=== PATIENT | female | born 2000 | race Hispanic/Latino ===

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

== ENCOUNTER 2023-03-19 04:27 | Emergency (ER) | payer OTHER, SELFPAY ==
[2023-03-19 04:31] VITALS: BP 124/77; PULSE 127; RESP 14; TEMP 37.6; O2SAT 98
[2023-03-19] MEDS: ACETAMINOPHEN 500 MG TABLET 1000 MG PO (05:42)
[2023-03-19] MEDS: IBUPROFEN 400 MG TABLET 800 MG PO (05:43)
[2023-03-19] MEDS: ONDANSETRON INJ 4 MG/2 ML VIAL IV PUSH (05:43)
[2023-03-19] MEDS: SODIUM CHLORIDE 0.9% IV 2,000 ML 999 ML IV CONT (05:43)
[2023-03-19] MEDS: AMOXICILLIN 500 MG CAPSULE PO (05:43)
--- NOTE | 2023-03-19 05:51 | ED.GENADULT ---
HPI - General Adult General Chief complaint: Nausea/Vomiting/Diarrhea Stated complaint: nausea and weakness Time Seen by Provider: 03/19/23 05:14 History of Present Illness HPI narrative: This is a 22-year-old female presenting ED with chief complaint of sore throat. Associated symptoms include fevers, body aches, and generalized weakness. denies difficulty breathing or abdominal pain. No nausea vomiting diarrhea. This started yesterday when she woke up but has gotten significantly worse tonight. Related Data Allergies Allergy/AdvReac Type Severity Reaction Status Date / Time No Known Allergies Allergy Unknown Unverified 06/15/19 19:35 No Known Allergies Allergy Uncoded 06/15/19 19:35 Exam Narrative: APPEARANCE: No apparent distress. Head: Tonsils are erythematous and edematous. No exudates. Tympanic membranes are normal EYES: EOMI, NOSE: Atraumatic NECK: Trachea midline RESPIRATORY: No increased rate of breathing, clear to auscultate CARDIOVASCULAR: RRR, ABDOMINAL: Non-distended, nontender no guarding rebound MUSCULOSKELETAl: No obvious deformities NEURO: Alert. Moving 4/4 extremities SKIN:: Warm, dry. Normal color PSYCHIATRIC: Normal affect Course Vital Signs Vital signs: Vital Signs Temperature 99.7 F H 03/19/23 04:31 Pulse Rate 127 H 03/19/23 04:31 Respiratory Rate 14 03/19/23 04:31 Blood Pressure 124/77 03/19/23 04:31 Pulse Oximetry 98 03/19/23 04:31 Oxygen Delivery Room Air 03/19/23 04:31 Temperature 99.7 F H 03/19/23 04:31 Pulse Rate 127 H 03/19/23 04:31 Respiratory Rate 14 03/19/23 04:31 Blood Pressure 124/77 03/19/23 04:31 Pulse Oximetry 98 03/19/23 04:31 Oxygen Delivery Room Air 03/19/23 04:31 Medical Decision Making [facility] Narrative Medical decision making narrative: -Presentation: 22-year-old female presenting with sore throat and flu-like symptoms. Patient is tachycardic at 127. Patient will be given symptom control and fluid resuscitation -DDX includes but is not limited to: Strep throat, viral pharyngitis, acute otitis media my viral syndrome -Co-morbidities complicating care: none -Social determinants of health: patient works in patient registration at an outside hospital. Lives with her family. -External Chart Review: review of previous ER visits for herpangina -Hx from independent Sources: father has a bedside -Independent interpretation of studies: Influenza A positive. strep negative, COVID negative -Discussion of Management/Consultants: none -Dx tests considered but not ordered: -Procedures: -Interventions: 2 L normal saline, Motrin, Tylenol, dexamethasone, Zofran, amoxicillin -Shared decision making / Disposition: Upon re-evaluation patient is feeling better. We discussed the risks and benefits of Tamiflu and decided against using it. Patient will be discharged with Motrin Tylenol and Zofran. Given return precautions. -RX Motrin, Tylenol Zofran Vital Signs Vital Signs: Vital Signs Temperature 99.7 F H 03/19/23 04:31 Pulse Rate 127 H 03/19/23 04:31 Respiratory Rate 14 03/19/23 04:31 Blood Pressure 124/77 03/19/23 04:31 Pulse Oximetry 98 03/19/23 04:31 Oxygen Delivery Room Air 03/19/23 04:31 Temperature 99.7 F H 03/19/23 04:31 Pulse Rate 127 H 03/19/23 04:31 Respiratory Rate 14 03/19/23 04:31 Blood Pressure 124/77 03/19/23 04:31 Pulse Oximetry 98 03/19/23 04:31 Oxygen Delivery Room Air 03/19/23 04:31 Lab Data Labs: Lab Results 03/19/23 Range/Units 05:30 Influenza A (RT-PCR) Pending Influenza B (RT-PCR) Pending RSV (RT-PCR) Pending SARS-CoV-2 RNA (RT-PCR) Pending Group A Strep (PCR) Pending Discharge Plan Discharge Clinical Impression: Influenza Patient Disposition: Home, Self-Care Condition: Stable Instructions: Antibiotic Form, Influenza (DC) Additional Instructions: You were seen in the [facility]
[2023-03-19 06:08] LABS: Strep Group A RT-PCR NOT DETECTED (Negative)
[2023-03-19 06:18] LABS: Influenza A QL RT-PCR Positive (Negative); Influenza B QL RT-PCR Negative (Negative); RSV RNA, RT-PCR Negative (Negative); SARS-CoV-2 RNA PCR Negative (Negative)
[2023-03-19 07:14] VITALS: BP 103/53; PULSE 112; RESP 20; TEMP 36.6; O2SAT 96
== END 2023-03-19 07:45 | disposition home or self-care (01) ==
PROVIDERS: Emergency Provider Emergency Medicine
DX: J11.1 Influenza due to unidentified influenza virus with other respiratory manifestations (principal); Z20.822 Contact with and (suspected) exposure to COVID-19
CPT/HCPCS: 87637; 87651; 96361; 96374; 99284; A9270; J2405; J7030

== ENCOUNTER 2024-07-05 18:23 | Emergency (ER) | payer OTHER, SELFPAY ==
--- NOTE | ~2024-07-05 | CT_ITS ---
EXAMINATION: CT abdomen pelvis wo con DATE: 07/05/2024 20:47 INDICATION: abdominal pain, rectal bleeding TECHNIQUE: Computed tomography (CT) of the abdomen and pelvis was performed without intravenous contr ast. Automated exposure control and iterative reconstruction technique were employed. The dose-length product was 756.32 mGy-cm. COMPARISON: None. FINDINGS: Lower thorax: Unremarkable Liver: Normal. Biliary/Gallbladder: Gallbladder is normal. No bile duct dilation. Pancreas: No mass or duct dilation. Spleen: Normal. Adrenals:No mass. Kidneys: No suspicious mass, obstructing stone, or hydronephrosis. GI tract: No small or large bowel dilation. Normal appendix. Mesentery/Peritoneum: No ascites, mass, or free air. Retroperitoneum: No mass. Pelvis: Pelvic organs are within normal limits. Soft Tissues: Soft tissues and body wall unremarkable. Bones: No acute osseous finding. IMPRESSION: No acute abdominopelvic process detected. Reviewed, dictated and finalized at location [facility].
--- NOTE | 2024-07-05 18:37 | ED.GIBLEED ---
HPI - GI Bleed General Chief complaint: GI Bleed <Juanis Gardner APRN - Last Filed: 07/05/24 18:44> Stated complaint: rectal bleeding ,abd pain <Juanis Gardner APRN - Last Filed: 07/05/24 18:44> Time Seen by Provider: 07/05/24 18:30 <Juanis Gardner APRN - Last Filed: 07/05/24 18:44> Focused HPI: Patient is a 23-year-old female who presents to the ER with concerns for rectal bleeding. Patient reports she does not have a history of hemorrhoids. She reports her last bowel movement was around 430 this afternoon and was a little hard. Patient reports she is supposed to see Gastroenterology because she has a history of GERD and abdominal pain. GENERAL: Well-appearing, well-nourished, and in no acute distress. HEAD: Normocephalic, atraumatic. CHEST: Clear to auscultation. ?No respiratory distress. HEART: Regular rate and rhythm.? NEURO: ?Alert and oriented x3. Patient screened in triage and initial orders placed.? ?Additional care and disposition to be based upon?diagnostic testing and treatment. <Juanis Gardner APRN - Last Filed: 07/05/24 18:44> History of Present Illness HPI Narrative: Patient is a 23-year-old female who presents emergency department chief complaint of rectal bleeding. Patient reports that she gets from her stool in the had some bright red blood per rectum patient reports that she had normal stool that was streaked with blood. Patient denies pain reports that she would have an uncomfortable feeling in her abdomen. The patient reports she is not on any blood thinners has no history of inflammatory bowel disorder <Vic Dow MD - Last Filed: 07/05/24 21:26> Related Data Allergies/Adverse reactions: Allergies Allergy/AdvReac Type Severity Reaction Status Date / Time No Known Allergies Allergy Unknown Unverified 06/15/19 19:35 No Known Allergies Allergy Uncoded 06/15/19 19:35 <Juanis Gardner APRN - Last Filed: 07/05/24 18:44> Review of Systems Review of Systems: A 10 system review of systems was completed on the patient and is negative except for what is stated in the HPI. Nursing and ancillary documentation was reviewed. <Vic Dow MD - Last Filed: 07/05/24 21:26> Exam Narrative: GENERAL: Well-appearing, well-nourished, and in no acute distress. HEAD: Normocephalic, atraumatic. EYES: PERRLA and EOMI. ENT: Nares clear, no rhinorrhea or epistaxis. Mucous membranes moist. NECK: Supple. CHEST: Clear to auscultation. No respiratory distress. HEART: Regular rate and rhythm. No murmur heard. Normal peripheral pulses. ABDOMEN: Soft, nontender, nondistended, normal active bowel sounds. : Trace guaiac-positive stool no bright red blood on rectal exam EXTREMITIES: Normal range of motion. No edema. SKIN: Warm, dry, no rash. NEURO: No focal deficits. Alert and oriented x3. PSYCH: Normal mood and affect. <Vic Dow MD - Last Filed: 07/05/24 21:26> Course Vital Signs Vital signs: Vital Signs Temperature 36.6 C 07/05/24 18:49 Pulse Rate 91 07/05/24 18:49 Respiratory Rate 16 07/05/24 18:49 Blood Pressure 145/87 H 07/05/24 18:49 Pulse Oximetry 100 07/05/24 18:49 Oxygen Delivery Room Air 07/05/24 18:49 Temperature 36.6 C 07/05/24 18:49 Pulse Rate 91 07/05/24 18:49 Respiratory Rate 16 07/05/24 18:49 Blood Pressure 145/87 H 07/05/24 18:49 Pulse Oximetry 100 07/05/24 18:49 Oxygen Delivery Room Air 07/05/24 18:49 <Juanis Gardner, FRONT OFFICE [employer]OPER - Last Filed: 07/05/24 18:44> Vital Signs Temperature 36.6 C 07/05/24 18:49 Pulse Rate 91 07/05/24 18:49 Respiratory Rate 16 07/05/24 18:49 Blood Pressure 145/87 H 07/05/24 18:49 Pulse Oximetry 100 07/05/24 18:49 Oxygen Delivery Room Air 07/05/24 18:49 Temperature 36.6 C 07/05/24 18:49 Pulse Rate 91 07/05/24 18:49 Respiratory Rate 16 07/05/24 18:49 Blood Pressure 145/87 H 07/05/24 18:49 Pulse Oximetry 100 07/05/24 18:49 Oxygen Delivery Room Air 07/05/24 18:49 <Vic Dow MD - Last Filed: 07/05/24 21:26> MDM - GI Bleed MDM Narrative Medical decision making narrative: Differential diagnosis includes colitis, diverticulitis, intra-abdominal infection Laboratory studies were obtained which showed a white count of 10.5 electrolytes are within normal limits AST and ALT were slightly elevated at 47 and 7.4 bilirubin is 0.2 lipase was normal urinalysis showed no evidence UTI. CT scan of the abdomen pelvis showed FINDINGS: Lower thorax: Unremarkable Liver: Normal. Biliary/Gallbladder: Gallbladder is normal. No bile duct dilation. Pancreas: No mass or duct dilation. Spleen: Normal. Adrenals:No mass. Kidneys: No suspicious mass, obstructing stone, or hydronephrosis. GI tract: No small or large bowel dilation. Normal appendix. Mesentery/Peritoneum: No ascites, mass, or free air. Retroperitoneum: No mass. Pelvis: Pelvic organs are within normal limits. Soft Tissues: Soft tissues and body wall unremarkable. Bones: No acute osseous finding. IMPRESSION: No acute abdominopelvic process detected. Patient started on hydrocortisone suppositories and Protonix Patient follow-up primary care and GI <Vic Dow MD - Last Filed: 07/05/24 21:26> Lab Data Result diagrams: 07/05/24 19:02 07/05/24 19:02 <Juanis Gardner APRN - Last Filed: 07/05/24 18:44> Labs: Lab Results 07/05/24 07/05/24 Range/Units 19:02 19:37 WBC 10.5 H (4.5-10.0) K/mm3 RBC 4.67 (4.2-5.4) M/mm3 Hgb 13.9 (12.0-15.0) g/dL Hct 42.4 (37.0-47.0) % MCV 90.8 (80-100) fl MCH 29.8 (26-34) pg MCHC 32.8 (32-36) g/dl RDW 12.3 (11.5-14.5) % Plt Count 389 H (150-375) k/mm3 MPV 8.6 (7.4-10.4) fl Immature Gran % (Auto) 0.2 (0-0.5) % Neut % (Auto) 61.7 (45.5-73.1) % Lymph % (Auto) 28.8 (18.3-44.2) % [place] % (Auto) 6.7 (2.6-8.5) % Eos % (Auto) 2.1 (0-4.4) % Baso % (Auto) 0.5 (0.2-1.2) % Lymph # (Auto) 3.02 (0.9-3.2) K/mm3 [place] # (Auto) 0.7 H (0.1-0.6) K/mm3 Eos # (Auto) 0.2 (0-0.3) K/mm3 Baso # (Auto) 0.1 (0.0-0.1) K/mm3 Abs Immat Gran (auto) 0.02 (0.00-0.031) K/mm3 Absolute Neuts (auto) 6.5 (1.3-6.7) K/mm3 Absolute Nucleated RBC 0.000 (0.0-0.012) K/mm3 Nucleated RBC % 0.0 (0.0-0.2) % PT 12.5 (11.1-14.7) Seconds INR 0.9 APTT 34.0 (22.3-36.8) Seconds Sodium 139 (137-145) mmol/L Potassium 3.8 (3.4-5.0) mmol/L Chloride 103 (98-107) mmol/L Carbon Dioxide 25 (22-30) mmol/L Anion Gap 11 (4-12) mmol/L BUN 15 (7-17) mg/dL Creatinine 0.70 (0.7-1.0) mg/dL Estim Creat Clear Calc 121 ml/min Estimated GFR > 60 (59 - ) Glucose 93 (65-110) mg/dL Lactic Acid 1.1 (0.7-2.0) mmol/L Calcium 9.1 (8.4-10.2) mg/dL Magnesium 2.2 (1.6-2.3) mg/dL Total Bilirubin 0.2 (0.2-1.3) mg/dL AST 47 H (14-36) U/L ALT 74 H (6-35) U/L Alkaline Phosphatase 126 (38-126) U/L Total Protein 9.0 H (6.3-8.2) g/dL Albumin 4.6 (3.5-5.1) g/dL Lipase 95 (23-300) U/L Urine Color Yellow (Yellow) Urine Appearance Clear (Clear) Urine pH 8.0 (5.0-9.0) Ur Specific [place] 1.029 (1.001-1.035) Urine Protein Trace (Negative) mg/dL Urine Glucose (UA) Negative (Negative) mg/dL Urine Ketones Negative (Negative) mg/dL Ur Blood (Man) Negative (Negative) Urine Nitrate Negative (Negative) Urine Bilirubin Negative (Negative) Urine Urobilinogen 1.0 (<2.0) mg/dL Leukocyte Esterase Rfl Trace H (Negative) YARA/UL Urine RBC 0-2 (0-2) /hpf Urine WBC 0-5 (0-3) /hpf Ur Squamous Epith Cells None seen (Few) /hpf Urine Bacteria None seen /hpf Urine Casts 0-2 Urine Test Negative Blood Type A Positive Antibody Screen Negative <Juanis Gardner, [employer]ONT OFF[employer]OPER - Last Filed: 07/05/24 18:44> Lab Results 07/05/24 07/05/24 Range/Units 19:02 19:37 WBC 10.5 H (4.5-10.0) K/mm3 RBC 4.67 (4.2-5.4) M/mm3 Hgb 13.9 (12.0-15.0) g/dL Hct 42.4 (37.0-47.0) % MCV 90.8 (80-100) fl MCH 29.8 (26-34) pg MCHC 32.8 (32-36) g/dl RDW 12.3 (11.5-14.5) % Plt Count 389 H (150-375) k/mm3 MPV 8.6 (7.4-10.4) fl Immature Gran % (Auto) 0.2 (0-0.5) % Neut % (Auto) 61.7 (45.5-73.1) % Lymph % (Auto) 28.8 (18.3-44.2) % [place] % (Auto) 6.7 (2.6-8.5) % Eos % (Auto) 2.1 (0-4.4) % Baso % (Auto) 0.5 (0.2-1.2) % Lymph # (Auto) 3.02 (0.9-3.2) K/mm3 [place] # (Auto) 0.7 H (0.1-0.6) K/mm3 Eos # (Auto) 0.2 (0-0.3) K/mm3 Baso # (Auto) 0.1 (0.0-0.1) K/mm3 Abs Immat Gran (auto) 0.02 (0.00-0.031) K/mm3 Absolute Neuts (auto) 6.5 (1.3-6.7) K/mm3 Absolute Nucleated RBC 0.000 (0.0-0.012) K/mm3 Nucleated RBC % 0.0 (0.0-0.2) % PT 12.5 (11.1-14.7) Seconds INR 0.9 APTT 34.0 (22.3-36.8) Seconds Sodium 139 (137-145) mmol/L Potassium 3.8 (3.4-5.0) mmol/L Chloride 103 (98-107) mmol/L Carbon Dioxide 25 (22-30) mmol/L Anion Gap 11 (4-12) mmol/L BUN 15 (7-17) mg/dL Creatinine 0.70 (0.7-1.0) mg/dL Estim Creat Clear Calc 121 ml/min Estimated GFR > 60 (59 - ) Glucose 93 (65-110) mg/dL Lactic Acid 1.1 (0.7-2.0) mmol/L Calcium 9.1 (8.4-10.2) mg/dL Magnesium 2.2 (1.6-2.3) mg/dL Total Bilirubin 0.2 (0.2-1.3) mg/dL AST 47 H (14-36) U/L ALT 74 H (6-35) U/L Alkaline Phosphatase 126 (38-126) U/L Total Protein 9.0 H (6.3-8.2) g/dL Albumin 4.6 (3.5-5.1) g/dL Lipase 95 (23-300) U/L Urine Color Yellow (Yellow) Urine Appearance Clear (Clear) Urine pH 8.0 (5.0-9.0) Ur Specific [place] 1.029 (1.001-1.035) Urine Protein Trace (Negative) mg/dL Urine Glucose (UA) Negative (Negative) mg/dL Urine Ketones Negative (Negative) mg/dL Ur Blood (Man) Negative (Negative) Urine Nitrate Negative (Negative) Urine Bilirubin Negative (Negative) Urine Urobilinogen 1.0 (<2.0) mg/dL Leukocyte Esterase Rfl Trace H (Negative) YARA/UL Urine RBC 0-2 (0-2) /hpf Urine WBC 0-5 (0-3) /hpf Ur Squamous Epith Cells None seen (Few) /hpf Urine Bacteria None seen /hpf Urine Casts 0-2 Urine Test Negative Blood Type A Positive Antibody Screen Negative <Vic Dow MD - Last Filed: 07/05/24 21:26> Discharge Plan Discharge Clinical Impression: Bright red rectal bleeding <Juanis Gardner APRN - Last Filed: 07/05/24 18:44> Patient Disposition: Home, Self-Care <Juanis Gardner APRN - Last Filed: 07/05/24 18:44> Condition: Stable <Juanis Gardner APRN - Last Filed: 07/05/24 18:44> Instructions: Antibiotic Form, Gastrointestinal Bleeding (ED), Hemorrhoids (ED) <Juanis Gardner APRN - Last Filed: 07/05/24 18:44> Prescriptions: New pantoprazole [Protonix] 40 mg tablet,delayed release (DR/EC) 40 mg PO HS 28 Days Qty: 28 0RF hydrocortisone acetate 25 mg suppository 25 mg RECTAL DAILY 10 Days Qty: 12 0RF No Action ibuprofen 800 mg tablet 800 mg PO TID PRN (Reason: pain) 7 Days Qty: 21 0RF acetaminophen 500 mg tablet 1,000 mg PO TID PRN (Reason: carley) 7 Days Qty: 42 0RF ondansetron 4 mg tablet,disintegrating 4 mg PO Q8H PRN (Reason: nausea and vomiting) Qty: 30 0RF <Juanis Gardner APRN - Last Filed: 07/05/24 18:44> Follow-up/Referrals: PHYSICIAN NOT ON STAFF,NONSTAFF [Primary Care Provider] - Easton Jackson MD [Physician] - <Juanis Gardner APRN - Last Filed: 07/05/24 18:44> Time of Disposition: 21:25 <Juanis Gardner APRN - Last Filed: 07/05/24 18:44> 21:25 <Vic Dow MD - Last Filed: 07/05/24 21:26>
[2024-07-05 18:49] VITALS: BP 145/87; PULSE 91; RESP 16; TEMP 36.6; O2SAT 100
[2024-07-05 19:48] LABS: Basophils Absolute Auto 0.1 K/mm3 (0.0-0.1); Basophils Percent Auto 0.5 % (0.2-1.2); Eosinophils Absolute Auto 0.2 K/mm3 (0-0.3); Eosinophils Percent Auto 2.1 % (0-4.4); Hematocrit 42.4 % (37.0-47.0); Hemoglobin 13.9 g/dL (12.0-15.0); Immature Granulocyte Absolute 0.02 K/mm3 (0.00-0.031); Immature Granulocyte Percent A 0.2 % (0-0.5); Lymphocytes Absolute Auto 3.02 K/mm3 (0.9-3.2); Lymphocytes Percent Auto 28.8 % (18.3-44.2); Mean Corpuscular HGB Conc 32.8 g/dl (32-36); Mean Corpuscular Hemoglobin 29.8 pg (26-34); Mean Corpuscular Volume 90.8 fl (80-100); Mean Platelet Volume 8.6 fl (7.4-10.4); Monocytes Absolute Auto 0.7 K/mm3 (0.1-0.6); Monocytes Percent Auto 6.7 % (2.6-8.5); Neutrophils Absolute Auto 6.5 K/mm3 (1.3-6.7); Neutrophils Percent Auto 61.7 % (45.5-73.1); Platelet Count Result 389 k/mm3 (150-375); Red Blood Count 4.67 M/mm3 (4.2-5.4); Red Cell Distribution Width 12.3 % (11.5-14.5); White Blood Count 10.5 K/mm3 (4.5-10.0)
[2024-07-05 19:50] LABS: Urine Pregnancy Test Negative
[2024-07-05 19:51] LABS: Pregnancy On Board Control Positive
[2024-07-05 19:55] LABS: Add Urine Microscopic? YES; Appearance Urine Clear (Clear); Bacteria Urine None Seen /hpf; Bilirubin Urine Negative (Negative); Blood Urine Negative (Negative); Color Urine Yellow (Yellow); Glucose Urine UA Negative (Negative); Ketones Urine Negative (Negative); Leukocyte Esterase Ur Trace LEU/UL (Negative); Nitrate Urine Negative (Negative); Non Pathogenic Casts 0-2; Protein Urine Trace mg/dL (Negative); RBC Urine 0-2 /hpf (0-2); Specific Grav Ur 1.029 (1.001-1.035); Squamous Epithelial Cell Urine None Seen /hpf (Few); WBC Urine 0-5 /hpf (0-3)
[2024-07-05 19:58] LABS: INR 0.9; Prothrombin Time 12.5 Seconds (11.1-14.7)
[2024-07-05 20:03] LABS: Lactic Acid Reflex 1.1 mmol/L (0.7-2.0)
[2024-07-05 20:05] LABS: Alanine Aminotransferase 74 U/L (6-35); Albumin Level 4.6 g/dL (3.5-5.1); Alkaline Phosphatase 126 U/L (38-126); Anion Gap 11 mmol/L (4-12); Aspartate Amino Transferase 47 U/L (14-36); Bilirubin,Total 0.2 mg/dL (0.2-1.3); Blood Urea Nitrogen 15 mg/dL (7-17); Calcium 9.1 mg/dL (8.4-10.2); Carbon Dioxide 25 mmol/L (22-30); Chloride 103 mmol/L (98-107); Estimated CRCL calculation 121 ml/min; Estimated Glomerular Filt Rate > 60; Glucose 93 mg/dL (65-110); Lipase 95 U/L (23-300); Magnesium 2.2 mg/dL (1.6-2.3); Potassium 3.8 mmol/L (3.4-5.0); Sodium 139 mmol/L (137-145)
[2024-07-05] MEDS: DICYCLOMINE HCL 10 MG CAPSULE PO (21:28)
[2024-07-05] MEDS: PANTOPRAZOLE SODIUM IV 40 MG VIAL IV PUSH (21:30)
[2024-07-05 21:52] VITALS: BP 111/76; PULSE 76; RESP 16; TEMP 36.7; O2SAT 98
== END 2024-07-05 21:53 | disposition home or self-care (01) ==
LOC: ANHED 21:33
PROVIDERS: Registered Nurse; Emergency Provider Emergency Medicine
DX: K62.5 Hemorrhage of anus and rectum (principal)
CPT/HCPCS: 36415; 74176; 80053; 81001; 81025; 83605; 83690; 83735; 85025; 85610; 85730; 86850; 86900; 86901; 96374; 99284; A9270; J2470